=== PATIENT | male | born 1950 | race Caucasian/White ===

== ENCOUNTER 2022-11-11 08:20 | Outpatient (CLI) | payer OTHER | END 2022-11-11 23:59 | disposition home or self-care (01) | LOC: CARD DIAG 08:20 | PROVIDERS: ATTEND Chiropractor | DX: I08.8 Other rheumatic multiple valve diseases (principal); I70.0 Atherosclerosis of aorta | CPT/HCPCS: 93306 ==

== ENCOUNTER 2023-07-10 12:47 | Emergency (ER) | payer OTHER, MEDICARE ==
[~2023-07-10] VITALS: Ht 182.9 cm; Wt 109.0 kg
[2023-07-10 13:00] VITALS: BP 149/71; PULSE 69; TEMP 97.6; O2SAT 98
[2023-07-10] MEDS ORDERED: BACL10TA2 PO (14:53)
[2023-07-10] MEDS ORDERED: METH4TAB81 PO (14:54)
[2023-07-10] MEDS ORDERED: ACET325C6 PO (14:55)
[2023-07-10 15:38] VITALS: RESP 18
[2023-07-10] MEDS: baclofen 10mg tablet PO PRN (15:38)
[2023-07-10] MEDS: oxyCODONE IR 5mg (immed. release) tablet PO ONE (15:38)
== END 2023-07-10 15:43 | disposition home or self-care (01) ==
LOC: ER 12:48
DX: M54.2 Cervicalgia (principal); W19.XXXA Unspecified fall, initial encounter; Y93.89 Activity, other specified; Y92.89 Other specified places as the place of occurrence of the external cause; Y99.8 Other external cause status
CPT/HCPCS: 72125; 99284; L0172

== ENCOUNTER 2023-10-30 05:58 | Day surgery (SDC) | payer MEDICARE, OTHER ==
[2023-10-29 10:33] LABS: BASOPHILS % (AUTO) 0.5 % (0-1); EOSINOPHILS # (AUTO) 0.4 X10'3 (0-0.9); EOSINOPHILS % (AUTO) 7.9 % (0-6); HEMATOCRIT 38.7 % (42.0-52.0); HEMOGLOBIN 13.2 g/dl (14.0-17.9); LYMPHOCYTES # (AUTO) 1.9 X10'3 (1.1-4.8); LYMPHOCYTES % (AUTO) 34.3 % (21-51); MEAN CORPUSCULAR HEMOGLOBIN 32.6 PG (27.0-31.0); MEAN CORPUSCULAR HGB CONC 34.1 g/dL (33.0-36.5); MEAN CORPUSCULAR VOLUME 95.6 FL (78-98); MEAN PLATELET VOLUME 8.6 FL (7.4-10.4); MONOCYTES # (AUTO) 0.6 X10'3 (0-0.9); MONOCYTES % (AUTO) 10.9 % (2-12); NEUTROPHILS # (AUTO) 2.6 X10'3 (1.8-7.7); NEUTROPHILS % (AUTO) 46.4 % (42-75); PLATELET COUNT 220 X10'3 (140-440); RED BLOOD COUNT 4.05 X10'6 (4.70-6.10); RED CELL DISTRIBUTION WIDTH 12.6 % (11.5-14.5); WHITE BLOOD COUNT 5.5 X10'3 (4.5-11.0)
[2023-10-29 10:49] LABS: APTT 26 SECONDS (22-32); PROTHROMBIN TIME 10.8 SECONDS (9.0-12.0)
[2023-10-29 11:54] LABS: ALBUMIN 3.5 G/DL (3.4-5.0); ANION GAP 8 (8-16); BLOOD UREA NITROGEN 15 MG/DL (7-18); BUN/CREATININE RATIO 13.8 (10.0-20.0); CALCIUM 9.2 MG/DL (8.5-10.1); CHLORIDE 104 MMOL/L (99-107); CREATININE 1.09 MG/DL (0.60-1.10); GLUCOSE 106 MG/DL (70-104); POTASSIUM 4.3 MMOL/L (3.5-5.1); SODIUM 136 MMOL/L (135-145); TOTAL CARBON DIOXIDE 24.5 MMOL/L (24-32); eGFR 66 ML/MIN
[2023-10-30] VITALS (8 sets, daily range): BP systolic 96–139; BP diastolic 51–69; PULSE 53–65; RESP 12–17; O2SAT 95–97
[~2023-10-30] VITALS: Ht 182.9 cm; Wt 107.1 kg
[~2023-10-30 05:58] MED LIST: ACET325C6 PO; BACL10TA2 PO; METH4TAB81 PO
[2023-10-30] MEDS ORDERED: normal saline 1,000 ML IV SCH (06:25)
[2023-10-30] MEDS ORDERED: ASPI-1265 PO (06:42)
[2023-10-30] MEDS ORDERED: PANT40TA54 PO (06:42)
[2023-10-30] MEDS ORDERED: ALFU10TA PO (06:42)
[2023-10-30] MEDS ORDERED: METO-395 PO (06:42)
[2023-10-30] MEDS ORDERED: ATOR20TA66 PO (06:42)
[2023-10-30] MEDS ORDERED: FINA5TAB11 PO (06:42)
[2023-10-30] MEDS ORDERED: LISI20TA28 PO (06:42)
[2023-10-30] MEDS: diphenhydrAMINE 25mg capsule PO PRN (07:28)
[2023-10-30] MEDS: LORazepam 0.5 MG tablet PO PRN (07:28)
[2023-10-30] MEDS ORDERED: verapamil 2.5 mg/ml inj IV ONE (07:30)
[2023-10-30] MEDS ORDERED: LIDOcaine 1% (10mg/ml) 2ml vial ONE (07:30)
[2023-10-30] MEDS ORDERED: fentaNYL/PF 50MCG/1 ML 2ML syringe ONE (07:31)
[2023-10-30] MEDS ORDERED: nitroGLYCERIN 500mcg/5mL D5W 5 ML IV ONE (07:31)
[2023-10-30] MEDS ORDERED: heparin 1,000unit/ml 10ml vial 10 ML ONE (07:31)
[2023-10-30] MEDS ORDERED: iohexol 350MG/ML 100ml bottle IV ONE (07:31)
[2023-10-30] MEDS ORDERED: midazolam 1 mg/ML 2ml injection ONE (07:31)
[2023-10-30] MEDS ORDERED: iohexol 350 MG/ML 50ML vial IV ONE (07:39)
[2023-10-30] MEDS ORDERED: HYDROcodone/acetaminophen 5mg/325mg tablet PO PRN (09:25)
[2023-10-30] MEDS ORDERED: HYDROcodone/acetaminophen 10/325mg tab PO PRN (09:25)
== END 2023-10-30 13:20 ==
LOC: SSTAY O 05:58
PROVIDERS: ATTEND Internal Medicine Cardiovascular Disease
DX: R94.39 Abnormal result of other cardiovascular function study (principal); I25.10 Atherosclerotic heart disease of native coronary artery without angina pectoris; I11.0 Hypertensive heart disease with heart failure; I50.32 Chronic diastolic (congestive) heart failure; E78.5 Hyperlipidemia, unspecified; E66.3 Overweight; Z79.82 Long term (current) use of aspirin; Z79.899 Other long term (current) drug therapy; Z90.89 Acquired absence of other organs; Z90.79 Acquired absence of other genital organ(s); Z90.49 Acquired absence of other specified parts of digestive tract; Z68.32 Body mass index [BMI] 32.0-32.9, adult; Z82.49 Family history of ischemic heart disease and other diseases of the circulatory system; Z82.3 Family history of stroke; Z80.9 Family history of malignant neoplasm, unspecified
CPT/HCPCS: 36415; 80048; 85025; 85610; 85730; 93005; 93458; 99152; A6258; A6402; C1769; C1894; J1644; J2001; J2250; J3010; J3490; J7030; Q0163; Q9967; Z7610; 76937; 99153; A6449